=== PATIENT | female | born 1985 | race Caucasian/White ===

== ENCOUNTER 2017-06-12 07:47 | Day surgery (SDC) | payer BC ==
[~2017-06-12 07:47] MED LIST: Lidocaine 1%/Sod Bicarbonate in NS 8.4% 1 ML Syringe IV PRN; Sodium Chloride 0.9% 10 ML Syringe FLUSH PRN
[2017-06-12] MEDS ORDERED: Bupivacaine 0.5% 30 ML SDV ONE (07:49)
[2017-06-12] MEDS ORDERED: Methylene Blue 50 MG/10 ML Ampule ONE (07:49)
[2017-06-12] MEDS ORDERED: 5% Dextrose in Water 100 ML Bag ONE (07:49)
--- NOTE | 2017-06-12 08:13 | PCM.PREANE ---
Preanesthetic Assessment - Procedure Proposed Procedure: Laparoscopy with chromotubation - Anesthesia/Transfusion/Family Hx Anesthesia History: Prior Anesthesia Without Reaction Family History of Anesthesia Reaction: No Transfusion History: No Prior Transfusion(s) - Review of Systems General: No Symptoms Pulmonary: No Symptoms Cardiovascular: No Symptoms Gastrointestinal: No Symptoms Neurological: No Symptoms Other: Reports: Easy Bruising - Physical Assessment NPO Status Date: 06/11/17 NPO Status Time: 22:00 Pulse: 62 O2 Sat by Pulse Oximetry: 97 Respiratory Rate: 16 Blood Pressure: 118/65 Temperature: 36.8 C Height: 1.7 m Weight: 86.183 kg ASA Class: 2 Mental Status: Alert & Oriented x3 Airway Class: Mallampati = 2 Dentition: Reports: Normal Dentition Thyro-Mental Finger Breadths: 3 Mouth Opening Finger Breadths: 3 ROM/Head Extension: Full Lungs: Clear to Auscultation, Normal Respiratory Effort Cardiovascular: Regular Rate, Regular Rhythm - Lab Values: Laboratory Last Values WBC 7.94 K/mm3 (3.98-10.04) 06/02/17 13:51 RBC 4.69 M/mm3 (3.98-5.22) 06/02/17 13:51 Hgb 13.8 gm/L (11.2-15.7) 06/02/17 13:51 Hct 40.2 % (34.1-44.9) 06/02/17 13:51 MCV 85.7 fl (79.4-94.8) 06/02/17 13:51 MCH 29.4 pg (25.6-32.2) 06/02/17 13:51 MCHC 34.3 g/dl (32.2-35.5) 06/02/17 13:51 RDW Std Deviation 38.0 fL (36.4-46.3) 06/02/17 13:51 Plt Count 353 K/mm3 (182-369) 06/02/17 13:51 MPV 10.1 fl (9.4-12.3) 06/02/17 13:51 Neut % (Auto) 53.6 % (34.0-71.1) 06/02/17 13:51 Lymph % (Auto) 37.8 % (19.3-51.7) 06/02/17 13:51 [place] % (Auto) 6.9 % (4.7-12.5) 06/02/17 13:51 Eos % (Auto) 1.3 (0.7-5.8) 06/02/17 13:51 Baso % (Auto) 0.4 % (0.1-1.2) 06/02/17 13:51 Neut # (Auto) 4.26 K/mm3 (1.56-6.13) 06/02/17 13:51 Lymph # (Auto) 3.00 K/mm3 (1.18-3.74) 06/02/17 13:51 [place] # (Auto) 0.55 K/mm3 (0.24-0.36) H 06/02/17 13:51 Eos # (Auto) 0.10 K/mm3 (0.04-0.36) 06/02/17 13:51 Baso # (Auto) 0.03 K/mm3 (0.01-0.08) 06/02/17 13:51 Sodium 141 mEq/L (136-145) 06/02/17 13:51 Potassium 3.5 mEq/L (3.5-5.1) 06/02/17 13:51 Chloride 104 mEq/L (98-107) 06/02/17 13:51 Carbon Dioxide 31 mEq/L (21-32) 06/02/17 13:51 Anion Gap 9.5 (5-15) 06/02/17 13:51 BUN 10 mg/dL (7-18) 06/02/17 13:51 Creatinine 0.8 mg/dL (0.55-1.02) 06/02/17 13:51 Est Cr Clr Drug Dosing 99.99 mL/min 06/02/17 13:51 Estimated GFR (MDRD) > 60 mL/min (>60) 06/02/17 13:51 BUN/Creatinine Ratio 12.5 (14-18) L 06/02/17 13:51 Glucose 91 mg/dL (74-106) 06/02/17 13:51 Calcium 9.7 mg/dL (8.5-10.1) 06/02/17 13:51 Urine Color Yellow (Yellow) 06/02/17 13:51 Urine Appearance Slt cloudy (Clear) H 06/02/17 13:51 Urine pH 6.5 (5.0-8.0) 06/02/17 13:51 Ur Specific [place] 1.025 (1.005-1.030) 06/02/17 13:51 Urine Protein Negative (Negative) 06/02/17 13:51 Urine Glucose (UA) Negative (Negative) 06/02/17 13:51 Urine Ketones Trace (Negative) H 06/02/17 13:51 Urine Occult Blood Negative (Negative) 06/02/17 13:51 Urine Nitrite Negative (Negative) 06/02/17 13:51 Urine Bilirubin Negative (Negative) 06/02/17 13:51 Urine Urobilinogen 0.2 (0.2-1.0) 06/02/17 13:51 Ur Leukocyte Esterase Trace (Negative) H 06/02/17 13:51 Urine HCG, Qual Negative (NEGATIVE) 06/12/17 07:50 - Allergies Allergies/Adverse Reactions: Allergies Allergy/AdvReac Type Severity Reaction Status Date / Time No Known Allergies Allergy Verified 03/12/16 00:07 - Blood Blood Available: No Product(s) Available: None - Anesthesia Plan Pre-Op Medication Ordered: None - Acknowledgements Anesthesia Type Planned: General Anesthesia Pt an Appropriate Candidate for the Planned Anesthesia: Yes Alternatives and Risks of Anesthesia Discussed w Pt/Guardian: Yes Pt/Guardian Understands and Agrees with Anesthesia Plan: Yes PreAnesthesia Questionnaire Gastrointestinal History: Reports: Chronic Constipation, Other (See Below) Other Gastrointestinal History: gastic sleeve 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) Other OB/BYN History: infertility Psychiatric History: Reports: ADHD - Infectious Disease History Infectious Disease History: Reports: Chicken Pox - Past Surgical History GI Surgical History: Reports: Cholecystectomy, Other (See Below) Other GI Surgeries/Procedures: gastric sleeve surgery Musculoskeletal Surgical History: Reports: Arthroscopic Knee, Other (See Below) Other Musculoskeletal Surgeries/Procedures:: knee surgery x3 - SUBSTANCE USE Smoking Status *Q: Former Smoker Tobacco Use Within Last Twelve Months: No Recreational Drug Use History: No - HOME MEDS Home Medications: Home Meds Vitamin B12 1 tab PO DAILY 03/12/16 [History] Pnv No.122/Iron/Folic Acid [ Multi Tablet] 1 tab PO DAILY 06/11/17 [ History] - CURRENT (IN HOUSE) MEDS Current Meds: Current Medications Lactated Ringer's (Ringers, Lactated) 1,000 mls @ 125 mls/hr IV ASDIRECTED ABIGAIL Stop: 06/12/17 23:00 Lidocaine/Sodium Bicarbonate (Buffered Lidocaine 1% In Ns 8.4%) 0.25 ml IV ONETIME PRN PRN Reason: Prior to IV Start Stop: 06/12/17 18:00 Sodium Chloride (Saline Flush) 10 ml FLUSH ASDIRECTED PRN PRN Reason: Keep Vein Open Stop: 06/12/17 18:00 Discontinued Medications Bupivacaine HCl (Marcaine 0.5%) Confirm Administered Dose 30 ml .ROUTE .STK-MED ONE Stop: 06/12/17 07:50 Methylene Blue (Provayblue) Confirm Administered Dose 50 mg .ROUTE .STK-MED ONE Stop: 06/12/17 07:50
[2017-06-12] MEDS: Lactated Ringers 1,000 ML IV SCH ×2 (08:15→10:04)
[2017-06-12] MEDS ORDERED: fentaNYL 250 MCG/5 ML SDV ONE (08:31)
[2017-06-12] MEDS ORDERED: Midazolam 1 MG/ML 2 ML SDV ONE (08:31)
[2017-06-12] MEDS ORDERED: Propofol 200 MG/20 ML SDV ONE (08:31)
[2017-06-12] MEDS ORDERED: Lidocaine 1% 4 ML ONE (08:33)
[2017-06-12] MEDS ORDERED: Ondansetron 4 MG/2 ML SDV ONE (08:33)
[2017-06-12] MEDS ORDERED: Dexamethasone 4 MG/ML 5 ML MDV ONE (08:33)
[2017-06-12] MEDS ORDERED: Rocuronium 50 MG/5 ML Vial ONE (08:33)
[2017-06-12] MEDS ORDERED: ceFAZolin 1 GM Vial ONE (09:02)
[2017-06-12] MEDS ORDERED: Ondansetron 4 MG/2 ML SDV IVPUSH PRN ×2 (09:20→09:37)
[2017-06-12] MEDS ORDERED: Acetaminophen/oxyCODONE 325-5 MG Tab PO PRN (09:20)
--- NOTE | 2017-06-12 09:27 | PCM.OPNOTE ---
- General Post-Op/Procedure Note Date of Surgery/Procedure: 06/12/17 Operative Procedure(s): laparoscopy, chromotubation, lysis of pelvic adhesions Findings: patient noted have normal size uterus, there were adhesions from the left fallopian tube fimbria to the posterior broad ligament. There was normal fill and spill of TROV dye from the fallopian tubes with chromotubation indicating bilateral patency.ovaries appeared functional. Anterior and posterior cul-de- sac were unremarkable. The appendix appeared noninflamed. Gallbladder was surgically absent. The liver looked normal. Pre Op Diagnosis: 1. Secondary infertility. 2. Abnormal hysterosalpingogram with radiopaque dye loculations in the left adnexal area. Post-Op Diagnosis: Samewith pelvic adhesionsadherence of left fimbriated end of the fallopian tube to left posterior broad ligament. Anesthesia Technique: General ET Tube Other Anesthesia Type: Marcaine 0.5%3-5 mL at each incision site Primary Surgeon: Zhen Payne Secondary Surgeon: Haroldo Buenrostro Anesthesia Provider: Josiah Garcia Remote Sensing Program Manager: Robbie Espitia Remote Sensing Program Manager: Daniela James Fluid Replacement, Intraop: 900 Output, Urine Amount: 100 EBL in mLs: 5 Drain/Tube Comments:: indwelling bladder catheter during surgery only. Complications: None Condition: Good Free Text/Narrative:: surgery duration: 28 minutes Procedure: Patient is taken to the operating room and placed in supine position up in table. Should be noted consent has been signed. Sequential compression stockings are in place. Patient was given 2 g of Ancef IV for at about prophylaxis. Patient is in place under general endotracheal anesthesia. She was placed in dorsal lithotomy position and prepped and draped in usual fashion. A uterine manipulator and a Bowden catheter were placed. The patient was returned to a dorsal lithotomy position with legs in the lower position. Infraumbilical and suprapubic port sites were then developed using 3-5 mL of Marcaine 0.5%. Eventually a right lateral port site- 5 mm in size was also developed. Pneumoperitoneum was established. The scope was placed and a chromotubation was undertaken. The dye that was used was TROV. The patient was noted to have adhesion as described above. With the second manipulator port site the adhesion was disrupted bluntly. No significant bleeding was noted. The fallopian tube was completely freed up. posterior [id number] fluid in dye was removed. The sleeves were removed and the patient was returned to a flattened position. Pneumoperitoneum was reversed. The upper sleeve was removed area and all incision sites were closed with one interrupted subcuticular stitch of 3-0 Monocryl. There further approximated with Dermabond skin glue. Patient was awakened from general endotracheal anesthesia after the uterine manipulator and the Bowden catheter were removed. She left the operating room in good condition.
[2017-06-12] MEDS ORDERED: Ketorolac 30 MG/ML SDV ONE (09:31)
[2017-06-12] MEDS ORDERED: Meperidine PF 50 MG/ML Syringe IVPUSH PRN (09:37)
[2017-06-12] MEDS ORDERED: fentaNYL 100 MCG/2 ML SDV IVPUSH PRN (09:37)
[2017-06-12] MEDS ORDERED: diphenhydrAMINE 50 MG/ML SDV IVPUSH PRN (09:37)
--- NOTE | 2017-06-12 09:37 | PCM.POSTAN ---
POST ANESTHESIA ASSESSMENT - MENTAL STATUS Mental Status: Alert, Oriented - VITAL SIGNS Pulse Rate: 96 SaO2: 99 Resp Rate: 15 Blood Pressure: 123/78 Temperature: 37.2 C - RESPIRATORY Respiratory Status: Respiratory Rate WNL, Airway Patent, O2 Saturation Stable, Supplemental Oxygen - CARDIOVASCULAR CV Status: Pulse Rate WNL, Blood Pressure Stable - GASTROINTESTINAL GI Status: No Symptoms - PAIN Pain Score: 0 - POST OP HYDRATION Hydration Status: Adequate & Stable
[2017-06-12] MEDS: HYDROmorphone 0.5 MG/0.5 ML Syringe IVPUSH PRN ×2 (09:53→10:11)
[2017-06-12 11:47] VITALS: BP 105/69
--- NOTE | 2017-06-12 13:58 | PCM48HPAN ---
Post Anesthesia Note - EVALUATION WITHIN 48HRS OF ANESTHETIC Vital Signs in Normal Range: Yes Patient Participated in Evaluation: No (report from nurse was good upon discharge ) Respiratory Function Stable: Yes Airway Patent: Yes Cardiovascular Function Stable: Yes Hydration Status Stable: Yes Pain Control Satisfactory: Yes Nausea and Vomiting Control Satisfactory: Yes Mental Status Recovered: Yes
== END 2017-06-12 11:35 | disposition home or self-care (01) ==
LOC: JD.SDS 07:47
PROVIDERS: ATTEND Obstetrics & Gynecology
DX: N73.6 Female pelvic peritoneal adhesions (postinfective) (principal); Z79.899 Other long term (current) drug therapy; Z98.84 Bariatric surgery status; Z98.890 Other specified postprocedural states
CPT/HCPCS: 36415; 58350; 58660; 80048; 81003; 81025; 85025; A9270; J0690; J1100; J1170; J1885; J2250; J2405; J3010; J7060; J7120; 00840; J2704

== ENCOUNTER 2019-09-05 07:30 | Inpatient (IN) | payer BC, OTHER ==
[~2019-09-05 07:30] MED LIST changes: +Acetaminophen 325 MG Tab PO ONE; +Bisacodyl 5 MG Tab PO PRN; +Lactated Ringers 1,000 ML IV SCH; +Lidocaine 1%/Sod Bicarbonate in NS 8.4% 1 ML Syringe IDERM PRN; -Lidocaine 1%/Sod Bicarbonate in NS 8.4% 1 ML Syringe IV PRN; +Magnesium Hydroxide 400 MG/5 ML Susp 30 ML Cup PO PRN; +Morphine 2 MG/ML Syringe IVPUSH PRN; +Naloxone 0.4 MG/ML SDV IVPUSH PRN; +Ondansetron 4 MG/2 ML SDV IVPUSH PRN; +Pregabalin 25 MG Cap PO ONE; +Sennosides 8.6 MG Tab PO PRN; +oxyCODONE ER 10 MG TAB.ER PO ONE
[2019-09-05] MEDS ORDERED: Morphine 8 MG, EPINEPHrine 0.3 MG, Cefuroxime 750 MG, Ketorolac 30 MG, Sodium Chloride ... ONE ×5 (10:00)
[2019-09-05] MEDS ORDERED: fentaNYL 100 MCG/2 ML SDV ONE (10:13)
[2019-09-05] MEDS ORDERED: Midazolam 1 MG/ML 2 ML SDV ONE ×2 (10:13→13:12)
[2019-09-05] MEDS ORDERED: Propofol 200 MG/20 ML SDV ONE ×2 (10:13→14:11)
[2019-09-05] MEDS ORDERED: ceFAZolin 1 GM Vial ONE ×2 (10:14→11:45)
[2019-09-05] MEDS ORDERED: oxyCODONE ER 10 MG TAB.ER PO ONE (11:00)
[2019-09-05] MEDS ORDERED: Pregabalin 25 MG Cap PO ONE (11:00)
[2019-09-05] MEDS ORDERED: Acetaminophen 325 MG Tab PO ONE (11:00)
[2019-09-05] MEDS ORDERED: Ropivacaine 0.5% 5 MG/ML 30 ML SDV ONE (11:24)
[2019-09-05] MEDS ORDERED: Vancomycin 1 GM SDV ONE (11:44)
[2019-09-05] MEDS ORDERED: Iodine/Sodium Iodide 2% Tincture 30 ML Bottle ONE (11:44)
[2019-09-05] MEDS ORDERED: Bupivacaine 0.25% 10 ML SDV ONE (11:44)
--- NOTE | 2019-09-05 11:45 | PCM.PREANE ---
Preanesthetic Assessment - Procedure Proposed Procedure: Left TKA - Anesthesia/Transfusion/Family Hx Anesthesia History: Prior Anesthesia Without Reaction Family History of Anesthesia Reaction: No Transfusion History: No Prior Transfusion(s) - Review of Systems General: No Symptoms Pulmonary: No Symptoms Cardiovascular: No Symptoms Gastrointestinal: No Symptoms Neurological: No Symptoms Other: Reports: Easy Bruising - Physical Assessment NPO Status Date: 09/04/19 NPO Status Time: 22:30 Vital Signs: Last Vital Signs Temp 36.7 C 09/05/19 10:40 Pulse 81 09/05/19 10:40 Resp 16 09/05/19 10:40 BP 108/78 09/05/19 10:40 Pulse Ox 97 09/05/19 10:40 Height: 1.7 m Weight: 83.915 kg ASA Class: 2 Mental Status: Alert & Oriented x3 Airway Class: Mallampati = 1 Dentition: Reports: Normal Dentition Thyro-Mental Finger Breadths: 3 Mouth Opening Finger Breadths: 3 ROM/Head Extension: Full Lungs: Clear to Auscultation, Normal Respiratory Effort Cardiovascular: Regular Rate, Regular Rhythm - Lab Values: Laboratory Last Values Urine HCG, Qual Negative (NEGATIVE) 09/05/19 10:38 MRSA (PCR) Negative 08/24/19 12:47 - Imaging/EKG Impressions: EKG sr rate 61 - Allergies Allergies/Adverse Reactions: Allergies Allergy/AdvReac Type Severity Reaction Status Date / Time No Known Allergies Allergy Verified 09/05/19 06:26 - Anesthesia Plan Pre-Op Medication Ordered: None - Acknowledgements Anesthesia Type Planned: Spinal Pt an Appropriate Candidate for the Planned Anesthesia: Yes Alternatives and Risks of Anesthesia Discussed w Pt/Guardian: Yes Pt/Guardian Understands and Agrees with Anesthesia Plan: Yes PreAnesthesia Questionnaire HEENT History: Reports: None Cardiovascular History: Reports: None Respiratory History: Reports: None Gastrointestinal History: Reports: Chronic Constipation, GERD, Other (See Below) Other Gastrointestinal History: gastic sleeve Genitourinary History: Reports: None 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) Other OB/BYN History: infertility, abnormal uterine bleeding, anovulation, bacterial vaginosis, laparoscopy, menorrhagia Musculoskeletal History: Reports: Arthritis, Other (See Below) Other Musculoskeletal History: hand pain, wrist pain Neurological History: Reports: None Psychiatric History: Reports: ADHD Endocrine/Metabolic History: Reports: None Hematologic History: Reports: None Immunologic History: Reports: None Oncologic (Cancer) History: Reports: None Dermatologic History: Reports: None - Infectious Disease History Infectious Disease History: Reports: Chicken Pox - Past Surgical History Head Surgeries/Procedures: Reports: None HEENT Surgical History: Reports: None Cardiovascular Surgical History: Reports: None Respiratory Surgical History: Reports: None GI Surgical History: Reports: Bariatric Procedure, Cholecystectomy, Other (See Below) Other GI Surgeries/Procedures: gastric sleeve surgery Female Surgical History: Reports: None Male Surgical History: Reports: None Endocrine Surgical History: Reports: None Neurological Surgical History: Reports: None Musculoskeletal Surgical History: Reports: Arthroscopic Knee, Other (See Below) Other Musculoskeletal Surgeries/Procedures:: knee surgery x3 Oncologic Surgical History: Reports: None Dermatological Surgical History: Reports: None - SUBSTANCE USE Smoking Status *Q: Former Smoker Tobacco Use Within Last Twelve Months: No Second Hand Smoke Exposure: No Days Per Week of Alcohol Use: 0 Number of Drinks Per Day: 0 Total Drinks Per Week: 0 Recreational Drug Use History: No - HOME MEDS Home Medications: Home Meds Cholecalciferol (Vitamin D3) [Vitamin D3] 5,000 unit PO DAILY 09/05/19 [History] Cyanocobalamin (Vitamin B-12) [Vitamin B-12] 1,000 mcg PO DAILY 09/05/19 [ History] Magnesium Oxide [Magnesium] 500 mg PO DAILY 09/05/19 [History] Vits #93/Iron Fum/FA [ Formula Tablet] 1 tab PO DAILY 09/05/19 [History] - CURRENT (IN HOUSE) MEDS Current Meds: Current Medications Bisacodyl (Dulcolax) 5 mg PO DAILY PRN PRN Reason: Constipation Cyclobenzaprine HCl (Flexeril) 10 mg PO TID PRN PRN Reason: Spasms Docusate Sodium (Colace) 100 mg PO BID ABIGAIL Famotidine (Pepcid) 20 mg PO Q12H ABIGAIL Lactated Ringer's (Ringers, Lactated) 1,000 mls @ 125 mls/hr IV ASDIRECTED ABIGAIL Stop: 09/05/19 23:00 Last Admin: 09/05/19 11:00 Dose: 125 mls/hr Cefazolin Sodium/Dextrose 2 gm (/ Premix) 50 mls @ 100 mls/hr IV Q8H ABIGAIL Stop: 09/06/19 10:29 Ketorolac Tromethamine (Toradol) 15 mg IVPUSH Q6H PRN PRN Reason: Pain Lidocaine/Sodium Bicarbonate (Buffered Lidocaine 1% In Ns 8.4%) 0.25 ml IDERM ONETIME PRN PRN Reason: Prior to IV Start Stop: 09/05/19 18:00 Last Admin: 09/05/19 11:00 Dose: 0.25 ml Magnesium Hydroxide (Milk Of Magnesia) 30 ml PO BID PRN PRN Reason: Constipation Morphine Sulfate (Morphine) 2 mg IVPUSH Q2H PRN PRN Reason: Breakthrough Pain Naloxone HCl (Narcan) 0.1 mg IVPUSH Q5M PRN PRN Reason: Oversedation Ondansetron HCl (Zofran) 4 mg IVPUSH Q6H PRN PRN Reason: Nausea/Vomiting Oxycodone/Acetaminophen (Percocet 325-5 Mg) 1 - 2 tab PO Q4H PRN PRN Reason: Pain Rivaroxaban (Xarelto) 10 mg PO DAILY ABIGAIL Senna (Senna) 8.6 mg PO BID PRN PRN Reason: Constipation Sodium Chloride (Saline Flush) 10 ml FLUSH ASDIRECTED PRN PRN Reason: Keep Vein Open Stop: 09/05/19 18:00 Discontinued Medications Acetaminophen (Tylenol) 975 mg PO ONETIME ONE Stop: 09/05/19 07:01 Last Admin: 09/05/19 11:00 Dose: 975 mg Acetaminophen (Tylenol) 975 mg PO ONETIME ONE Stop: 09/05/19 11:01 Cefazolin Sodium (Ancef) Confirm Administered Dose 2 gm .ROUTE .STK-MED ONE Stop: 09/05/19 10:15 Morphine Sulfate 8 mg/Epinephrine HCl 0.3 mg/Cefuroxime Sodium 750 mg/Ketorolac Tromethamine 30 mg/Sodium Chloride 27.9 ml 0 mg .XX ONETIME ONE Stop: 09/05/19 10:01 Fentanyl (Sublimaze) Confirm Administered Dose 100 mcg .ROUTE .STK-MED ONE Stop: 09/05/19 10:14 Midazolam HCl (Versed 1 Mg/Ml) Confirm Administered Dose 2 mg .ROUTE .STK-MED ONE Stop: 09/05/19 10:14 Oxycodone HCl (Oxycontin) 10 mg PO ONETIME ONE Stop: 09/05/19 07:01 Last Admin: 09/05/19 11:00 Dose: 10 mg Oxycodone HCl (Oxycontin) 10 mg PO ONETIME ONE Stop: 09/05/19 11:01 Pregabalin (Lyrica) 50 mg PO ONETIME ONE Stop: 09/05/19 07:01 Last Admin: 09/05/19 10:59 Dose: 50 mg Pregabalin (Lyrica) 50 mg PO ONETIME ONE Stop: 09/05/19 11:01 Propofol (Diprivan 20 Ml) Confirm Administered Dose 600 mg .ROUTE .STK-MED ONE Stop: 09/05/19 10:14 Ropivacaine (Naropin 0.5%) Confirm Administered Dose 30 ml .ROUTE .STK-MED ONE Stop: 09/05/19 11:25
[2019-09-05] MEDS ORDERED: Ketorolac 15 MG/ML SDV IVPUSH PRN (12:00)
[2019-09-05] MEDS ORDERED: Lidocaine 1% 4 ML ONE (13:12)
[2019-09-05] MEDS ORDERED: HYDROmorphone 0.5 MG/0.5 ML Syringe IVPUSH PRN (13:20)
[2019-09-05] MEDS ORDERED: Ondansetron 4 MG/2 ML SDV IVPUSH PRN (13:20)
[2019-09-05] MEDS ORDERED: fentaNYL 100 MCG/2 ML SDV IVPUSH PRN (13:20)
[2019-09-05] MEDS ORDERED: Lactated Ringers 1,000 ML ONE ×2 (13:22→13:41)
[2019-09-05] MEDS ORDERED: ePHEDrine/Normal Saline 25 MG/5 ML Syringe ONE (13:22)
[2019-09-05] MEDS ORDERED: Ketorolac 30 MG/ML SDV ONE (14:27)
[2019-09-05] MEDS ORDERED: Ondansetron 4 MG/2 ML SDV ONE (14:27)
--- NOTE | 2019-09-05 14:55 | PCM.POSTAN ---
POST ANESTHESIA ASSESSMENT - MENTAL STATUS Mental Status: Alert, Oriented - VITAL SIGNS Vital Signs: Last Vital Signs Temp 97.9 F 09/05/19 14:50 Pulse 81 09/05/19 10:40 Resp 12 09/05/19 14:50 BP 114/52 L 09/05/19 14:50 Pulse Ox 100 09/05/19 14:50 100 12 97.8 100% 114/52 - RESPIRATORY Respiratory Status: Respiratory Rate WNL, Airway Patent, O2 Saturation Stable, Supplemental Oxygen - CARDIOVASCULAR CV Status: Pulse Rate WNL, Blood Pressure Stable - GASTROINTESTINAL GI Status: No Symptoms - PAIN Pain Score: 0 - POST OP HYDRATION Hydration Status: Adequate & Stable - OBSERVATIONS Free Text/Narrative:: chilly
--- NOTE | 2019-09-05 15:11 | PCM.SN ---
- Free Text/Narrative Note: Left selective femoral nerve block at the adductor canal for post-procedure pain control under US guidance requested by Dr. Jiménez. Date:09/05/19 Time Out: 1500 Start: 1503 End: 1505 Chart reviewed. Consent signed. Questions answered. Appropriate monitors applied. Time out performed. Left mid-shaft femur identified with ultrasound, scanning medially of femur, the femoral artery in the adductor canal visualized , and the femoral nerve located laterally to the artery. The skin was prepped lateral to the ultrasound probe with chlorahexadine times two. The 21ga 4 insulated block needle was inserted under direct ultrasound guidance into the adductor canal. 25mL of 0.5% ropivacaine with 1:200,000 epinephrine was injected circumferentially around the nerve with intermittent negative aspiration noted. Patient tolerated the procedure well. Sterile technique noted along with sterile gloves, mask, and sterile probe cover. See picture on progress note and vital signs on nurses notes. Block completed in PACU. Leti Hollingsworth CRNA
[2019-09-05] MEDS: Acetaminophen/oxyCODONE 325-5 MG Tab PO PRN ×2 (15:34→20:47)
--- NOTE | 2019-09-05 16:01 | CR ---
Left knee: AP and lateral views left knee were obtained. Comparison: No prior left knee exam. Knee prosthesis is seen. Components are aligned. Two surgical screws are seen within the proximal tibia inferior to the knee prosthesis. No fracture or other bony abnormality is seen. Surgical anchor is noted within the patella. Soft tissue air is noted from the surgical procedure. Impression: 1. Knee prosthesis. Other findings as noted above. 2. Nothing acute is seen. Diagnostic code #2 This report was dictated in [place] Standard Time
[2019-09-05] MEDS: ceFAZolin 2 GM in Premix Bag 1 BAG IV SCH (17:34)
[2019-09-05] MEDS: Cyclobenzaprine 10 MG Tab PO PRN (17:34)
[2019-09-05] MEDS: Famotidine 20 MG Tab PO SCH ×2 (19:20→23:24)
[2019-09-05] MEDS: Docusate Sodium 100 MG Cap PO SCH (20:48)
[2019-09-05] MEDS ORDERED: Cyanocobalamin (Vitamin B12) 1,000 MCG Tab PO SCH (21:00)
[2019-09-05] MEDS ORDERED: Prenatal Multivitamin with Calcium/Folic Acid/Iron Tab PO SCH (21:00)
[2019-09-05] MEDS ORDERED: Cholecalciferol (Vitamin D3) 5,000 UNIT Tab PO SCH (21:00)
[2019-09-05] MEDS ORDERED: Magnesium Oxide 400 MG Tab PO SCH (21:00)
[2019-09-06] MEDS: Acetaminophen/oxyCODONE 325-5 MG Tab PO PRN ×2 (00:49→05:45)
[2019-09-06] MEDS: ceFAZolin 2 GM in Premix Bag 1 BAG IV SCH ×2 (02:14→09:44)
[2019-09-06] MEDS: Cyclobenzaprine 10 MG Tab PO PRN (07:40)
[2019-09-06 07:52] VITALS: BP 120/77; PULSE 72
--- NOTE | 2019-09-06 07:53 | PCM48HPAN ---
Post Anesthesia Note - EVALUATION WITHIN 48HRS OF ANESTHETIC Vital Signs in Normal Range: Yes Patient Participated in Evaluation: Yes Respiratory Function Stable: Yes Airway Patent: Yes Cardiovascular Function Stable: Yes Hydration Status Stable: Yes Pain Control Satisfactory: Yes Nausea and Vomiting Control Satisfactory: Yes Mental Status Recovered: Yes Vital Signs: Last Vital Signs Temp 98.8 F 09/06/19 07:43 Pulse 72 09/06/19 07:43 Resp 14 09/06/19 07:43 BP 120/77 09/06/19 07:43 Pulse Ox 99 09/06/19 07:43 - COMMENTS/OBSERVATIONS Free Text/Narrative:: minimal pain. Some indigestion and nausea at times.
[2019-09-06] MEDS ORDERED: oxyCODONE 5 MG Tab PO PRN (08:32)
[2019-09-06] MEDS ORDERED: Rivaroxaban 10 MG Tab PO SCH (09:00)
[2019-09-06] MEDS: Docusate Sodium 100 MG Cap PO SCH (09:06)
[2019-09-06] MEDS: Famotidine 20 MG Tab PO SCH (09:06)
--- NOTE | 2019-09-08 13:28 | PCM.SURGPN ---
- General Info Date of Service: 09/06/19 POD#: 1 Functional Status: Reports: Pain Controlled, Tolerating Diet, Ambulating, Urinating, Incentive Spirometry, Other (The pt has been independent in her room. ) - Patient Data Vitals - Most Recent: Last Vital Signs Temp 98.8 F 09/06/19 07:43 Pulse 72 09/06/19 07:43 Resp 14 09/06/19 07:43 BP 120/77 09/06/19 07:43 Pulse Ox 99 09/06/19 07:43 Weight - Most Recent: 185 lb Med Orders - Current: Current Medications Discontinued Medications Acetaminophen (Tylenol) 975 mg PO ONETIME ONE Stop: 09/05/19 07:01 Last Admin: 09/05/19 11:00 Dose: 975 mg Acetaminophen (Tylenol) 975 mg PO ONETIME ONE Stop: 09/05/19 11:01 Bisacodyl (Dulcolax) 5 mg PO DAILY PRN PRN Reason: Constipation Bupivacaine HCl (Sensorcaine-Mpf 0.25%) Confirm Administered Dose 30 ml .ROUTE .STK-MED ONE Stop: 09/05/19 11:45 Last Admin: 09/05/19 14:13 Dose: 30 ml Cefazolin Sodium (Ancef) Confirm Administered Dose 2 gm .ROUTE .STK-MED ONE Stop: 09/05/19 10:15 Last Admin: 09/05/19 14:10 Dose: 2 gm Cefazolin Sodium (Ancef) Confirm Administered Dose 2 gm .ROUTE .STK-MED ONE Stop: 09/05/19 11:46 Cholecalciferol (Vitamin D3) 5,000 unit PO BEDTIME [facility] Last Admin: 09/05/19 20:48 Dose: 5,000 unit Morphine Sulfate 8 mg/Epinephrine HCl 0.3 mg/Cefuroxime Sodium 750 mg/Ketorolac Tromethamine 30 mg/Sodium Chloride 27.9 ml 0 mg .XX ONETIME ONE Stop: 09/05/19 10:01 Last Admin: 09/05/19 14:13 Dose: 788.3 mg Cyanocobalamin (Vitamin B12) 1,000 mcg PO BEDTIME [facility] Last Admin: 09/05/19 20:48 Dose: 1,000 mcg Cyclobenzaprine HCl (Flexeril) 10 mg PO TID PRN PRN Reason: Spasms Last Admin: 09/06/19 07:40 Dose: 10 mg Docusate Sodium (Colace) 100 mg PO BID [facility] Last Admin: 09/06/19 09:06 Dose: 100 mg Ephedrine Sulfate (Ephedrine In Ns) Confirm Administered Dose 25 mg .ROUTE .STK- MED ONE Stop: 09/05/19 13:23 Famotidine (Pepcid) 20 mg PO Q12H [facility] Last Admin: 09/06/19 09:06 Dose: 20 mg Fentanyl (Sublimaze) Confirm Administered Dose 100 mcg .ROUTE .STK-MED ONE Stop: 09/05/19 10:14 Fentanyl (Sublimaze) 50 mcg IVPUSH Q5M PRN PRN Reason: Pain Stop: 09/05/19 15:00 Hydromorphone HCl (Dilaudid) 0.5 mg IVPUSH Q10M PRN PRN Reason: Pain (severe 7-10) Stop: 09/05/19 15:00 Lactated Ringer's (Ringers, Lactated) 1,000 mls @ 125 mls/hr IV ASDIRECTED [facility] Stop: 09/05/19 23:00 Last Admin: 09/05/19 11:00 Dose: 125 mls/hr Cefazolin Sodium/Dextrose 2 gm (/ Premix) 50 mls @ 100 mls/hr IV Q8H [facility] Stop: 09/06/19 10:29 Last Admin: 09/06/19 09:44 Dose: 100 mls/hr Lidocaine HCl (Xylocaine-Mpf 1%) Confirm Administered Dose 4 mls @ as directed .ROUTE .STK-MED ONE Stop: 09/05/19 13:13 Lactated Ringer's (Ringers, Lactated) Confirm Administered Dose 1,000 mls @ as directed .ROUTE .STK-MED ONE Stop: 09/05/19 13:23 Lactated Ringer's (Ringers, Lactated) Confirm Administered Dose 1,000 mls @ as directed .ROUTE .STK-MED ONE Stop: 09/05/19 13:42 Iodine (Iodine 2% Mild Tincture) Confirm Administered Dose 30 ml .ROUTE .STK- MED ONE Stop: 09/05/19 11:45 Last Admin: 09/05/19 14:06 Dose: 18 ml Ketorolac Tromethamine (Toradol) 15 mg IVPUSH Q6H PRN PRN Reason: Pain Ketorolac Tromethamine (Toradol) Confirm Administered Dose 30 mg .ROUTE .STK- MED ONE Stop: 09/05/19 14:28 Lidocaine/Sodium Bicarbonate (Buffered Lidocaine 1% In Ns 8.4%) 0.25 ml IDERM ONETIME PRN PRN Reason: Prior to IV Start Stop: 09/05/19 18:00 Last Admin: 09/05/19 11:00 Dose: 0.25 ml Magnesium Hydroxide (Milk Of Magnesia) 30 ml PO BID PRN PRN Reason: Constipation Magnesium Oxide (Magnesium Oxide) 400 mg PO BEDTIME [facility] Last Admin: 09/05/19 20:48 Dose: 400 mg Midazolam HCl (Versed 1 Mg/Ml) Confirm Administered Dose 2 mg .ROUTE .STK-MED ONE Stop: 09/05/19 10:14 Midazolam HCl (Versed 1 Mg/Ml) Confirm Administered Dose 2 mg .ROUTE .STK-MED ONE Stop: 09/05/19 13:13 Morphine Sulfate (Morphine) 2 mg IVPUSH Q2H PRN PRN Reason: Breakthrough Pain Last Admin: 09/05/19 17:57 Dose: 2 mg Naloxone HCl (Narcan) 0.1 mg IVPUSH Q5M PRN PRN Reason: Oversedation Ondansetron HCl (Zofran) 4 mg IVPUSH Q6H PRN PRN Reason: Nausea/Vomiting Ondansetron HCl (Zofran) 4 mg IVPUSH ONETIME PRN PRN Reason: Nausea/Vomiting Stop: 09/05/19 15:00 Ondansetron HCl (Zofran) Confirm Administered Dose 4 mg .ROUTE .STK-MED ONE Stop: 09/05/19 14:28 Oxycodone HCl (Oxycontin) 10 mg PO ONETIME ONE Stop: 09/05/19 07:01 Last Admin: 09/05/19 11:00 Dose: 10 mg Oxycodone HCl (Oxycontin) 10 mg PO ONETIME ONE Stop: 09/05/19 11:01 Oxycodone HCl (Oxycodone) 5 - 10 mg PO Q4H PRN PRN Reason: Pain Last Admin: 09/06/19 11:01 Dose: 10 mg Oxycodone/Acetaminophen (Percocet 325-5 Mg) 1 - 2 tab PO Q4H PRN PRN Reason: Pain Last Admin: 09/06/19 05:45 Dose: 2 tab Pregabalin (Lyrica) 50 mg PO ONETIME ONE Stop: 09/05/19 07:01 Last Admin: 09/05/19 10:59 Dose: 50 mg Pregabalin (Lyrica) 50 mg PO ONETIME ONE Stop: 09/05/19 11:01 Prenat Multivit/Telluride/Iron/Folic Ac ( Plus Iron) 1 each PO BEDTIME [facility] Last Admin: 09/05/19 20:48 Dose: 1 each Propofol (Diprivan 20 Ml) Confirm Administered Dose 600 mg .ROUTE .STK-MED ONE Stop: 09/05/19 10:14 Propofol (Diprivan 20 Ml) Confirm Administered Dose 200 mg .ROUTE .STK-MED ONE Stop: 09/05/19 14:12 Rivaroxaban (Xarelto) 10 mg PO DAILY [facility] Last Admin: 09/06/19 09:06 Dose: 10 mg Ropivacaine (Naropin 0.5%) Confirm Administered Dose 30 ml .ROUTE .STK-MED ONE Stop: 09/05/19 11:25 Senna (Senna) 8.6 mg PO BID PRN PRN Reason: Constipation Sodium Chloride (Saline Flush) 10 ml FLUSH ASDIRECTED PRN PRN Reason: Keep Vein Open Stop: 09/05/19 18:00 Tranexamic Acid (Cyklokapron) Confirm Administered Dose 1,000 mg .ROUTE .STK- MED ONE Stop: 09/05/19 11:45 Last Admin: 09/05/19 14:20 Dose: 1,000 mg Vancomycin HCl (Vancomycin) Confirm Administered Dose 1 gm .ROUTE .STK-MED ONE Stop: 09/05/19 11:45 Last Admin: 09/05/19 14:16 Dose: 1 gm - Exam Wound/Incisions: Dressing Dry and Intact General: Alert, Cooperative, No Acute Distress Lungs: Normal Respiratory Effort Extremities: Other (NVS intact for LLE. Arvin's negative for BLE.) Sepsis Event Note - Evaluation Sepsis Screening Result: No Definite Risk - Problem List Review Problem List Initiated/Reviewed/Updated: Yes - Assessment Assessment (Free Text/Narrative):: POD#1 - left TKA - Plan Plan (Free Text/Narrative):: 1. Hgb 11.3. 2. Xarelto 10mg PO daily x 30 days. The pt is unable to use ASA due to hx weight loss surgery. 3. Outpatient therapy. 4. Discharge to home today. The pt's case was discussed with Dr. Jiménez today.
--- NOTE | 2019-09-08 16:16 | PCM.OPNOTE ---
- General Post-Op/Procedure Note Date of Surgery/Procedure: 09/05/19 Operative Procedure(s): left total knee arthroplasty Pre Op Diagnosis: left knee osteoarthrosis Post-Op Diagnosis: Same Anesthesia Technique: Local, MAC, Spinal Primary Surgeon: Sebastian Jiménez Anesthesia Provider: Leti Hollingsworth Framing Manager: Nilsa Carrasquillo Framing Manager: Kati Reinoso in mLs: 5 Complications: None Condition: Good Free Text/Narrative:: 12/23 32x10 9mm
--- NOTE | 2019-09-08 16:41 | OR ---
DATE OF OPERATION: 09/05/2019 SURGEON: Sebastian Jiménez MD OPERATION PERFORMED: Left total knee arthroplasty. PREOPERATIVE DIAGNOSIS: Left knee osteoarthrosis. POSTOPERATIVE DIAGNOSIS: Left knee osteoarthrosis. ANESTHESIA: Local MAC with spinal. ANESTHESIA PROVIDER: Leti Hollingsworth CRNA. ASSISTANTS: Nilsa Carrasquillo PA-C , and Kati Reinoso LPN. ESTIMATED BLOOD LOSS: 5 mL. COMPLICATIONS: None. CONDITION: Stable. IMPLANTS: 1. [place] size 4 press-fit CR femur. 2. Joe size 4 cemented universal tibial base plate. 3. Joe size 4, 9 mm CS polyethylene insert. 4. Joe size 32 x 10 mm cemented asymmetric patella. DESCRIPTION OF PROCEDURE: The patient was identified in the preop holding area. Proper site was marked and identified by the surgeon. The patient was taken back to the operating theater. After adequate anesthesia, the patient's left lower extremity had a nonsterile tourniquet applied and it was sterilely prepped and draped in the usual sterile fashion. OR time-out was performed. The patient received 2 g IV Ancef. At this time, the left lower extremity was exsanguinated. Tourniquet was insufflated to 300 mmHg. Standard medial parapatellar incision was made. Medial parapatellar arthrotomy was created. Deep fibers of the MCL were raised and anterior fat pad was resected. At this time, attention was turned to the patella. Patella measured 21, it was resected to a 13 for 32 x 10 mm patella. Drill holes were then drilled and found to be in adequate position. The drill was then drilled in the distal femur and the intramedullary distal femoral cutting guide was then placed. 10 mm was resected off the distal femur and was found to be an adequate resection. Patient had a very hypoplastic lateral femoral condyle. Sizing guide was placed. It was found to be a size 4 press-fit CR femur that was shown on the implant record at the beginning of this dictation. The drill holes were drilled for the epicondylar axis using [place] line and epicondyles as reference. At this time, the 4-in - 1 cutting block was placed. An anterior posterior and anterior and posterior chamfer cuts were then completed. I decided to press-fit the femur secondary to the patients age. Attention was turned to the tibia. The posterior medial lateral retractors were placed. The extramedullary tibial guide was placed. It was placed in the old footprint of the ACL. It was aligned with the center of the ankle and 0 degrees of slope, 9 mm was then resected off the unaffected side. There was found to be an acceptable reduction. At this time, posterior osteophytes were removed along with medial and lateral meniscus. A trial implant was placed with a correct sized tibia that was mentioned at the beginning of the dictation. A Joe size 4, 9 mm CS polyethylene insert was then placed. The patient's knee was brought through range of motion. The patella was tracking centrally and was stable to varus and valgus stress. Alignment was found to be roughly at 0 degrees. The tibia was stamped and drilled in proper rotation. The universal tibial base plate was impacted in place. Next, the Joe size 4 press-fit CR femur impacted into place and the Joe size 4, 9 mm CS polyethylene insert was placed. The patient's knee was brought into full extension. The patella was then cemented in place at this time. Tourniquet was deflated. One liter dilute Betadine solution was irrigated through the knee along with 3 L of pulse lavage irrigation with Ancef. Periarticular injection was then completed. The patient's knee was brought through a range of motion. Once the cement had time to set up and it was found to be stable to varus valgus stress, the patella was tracking centrally with full range of motion. At this time, a #2 barbed suture was used for closure of the medial parapatellar arthrotomy. Topical tranexamic acid was placed. 2-0 Vicryl was used subcutaneously, Prineo was used for the skin. The patient tolerated the procedure well and was sent to the PACU in stable condition. MMODAL /[id number]
== END 2019-09-06 11:10 | disposition home or self-care (01) | DRG 302 ==
LOC: EDSTATUS 07:30 → JD.MS 10:31 → JD.OB 14:22
PROVIDERS: ADMIT Orthopaedic Surgery; ATTEND Orthopaedic Surgery
PROC: 0SRD0J9 Replacement of Left Knee Joint with Synthetic Substitute, Cemented, Open Approach (ICD-10-PCS; principal; 2019-09-05)
DX: M17.12 Unilateral primary osteoarthritis, left knee (principal)
CPT/HCPCS: 01402; 36415; 64450; 73560-26-LT; 73560-LT; 80053; 81025; 85027; 87641; 97110-GP; 97116-GP; 97161-GP; 97165-GO; 97535-GO; A9270-GY; C1713; C1776; J0171; J0690; J0697; J1885; J2001; J2250; J2270; J2405; J2704; J2795; J3010; J3370; J3490; J7050; J7120

== ENCOUNTER 2019-10-10 06:18 | Day surgery (SDC) | payer BC ==
[~2019-10-10 06:18] MED LIST changes: -Acetaminophen 325 MG Tab PO ONE; -Bisacodyl 5 MG Tab PO PRN; -Magnesium Hydroxide 400 MG/5 ML Susp 30 ML Cup PO PRN; -Morphine 2 MG/ML Syringe IVPUSH PRN; -Naloxone 0.4 MG/ML SDV IVPUSH PRN; -Ondansetron 4 MG/2 ML SDV IVPUSH PRN; -Pregabalin 25 MG Cap PO ONE; -Sennosides 8.6 MG Tab PO PRN; -oxyCODONE ER 10 MG TAB.ER PO ONE
--- NOTE | 2019-10-10 06:46 | PCM.PREANE ---
Preanesthetic Assessment - Anesthesia/Transfusion/Family Hx Anesthesia History: Prior Anesthesia Without Reaction Family History of Anesthesia Reaction: No Transfusion History: No Prior Transfusion(s) - Review of Systems General: No Symptoms Pulmonary: No Symptoms Cardiovascular: No Symptoms Gastrointestinal: No Symptoms Neurological: No Symptoms Other: Reports: None - Physical Assessment NPO Status Date: 10/09/19 NPO Status Time: 00:00 Height: 1.7 m Weight: 81.465 kg ASA Class: 2 Mental Status: Alert & Oriented x3 Airway Class: Mallampati = 1 Dentition: Reports: Normal Dentition Thyro-Mental Finger Breadths: 3 Mouth Opening Finger Breadths: 3 ROM/Head Extension: Full Lungs: Clear to Auscultation, Normal Respiratory Effort Cardiovascular: Regular Rate, Regular Rhythm - Allergies Allergies/Adverse Reactions: Allergies Allergy/AdvReac Type Severity Reaction Status Date / Time No Known Allergies Allergy Verified 10/07/19 11:04 - Blood Blood Available: No Product(s) Available: None - Anesthesia Plan Pre-Op Medication Ordered: None - Acknowledgements Anesthesia Type Planned: MAC Pt an Appropriate Candidate for the Planned Anesthesia: Yes Alternatives and Risks of Anesthesia Discussed w Pt/Guardian: Yes Pt/Guardian Understands and Agrees with Anesthesia Plan: Yes PreAnesthesia Questionnaire HEENT History: Reports: None Cardiovascular History: Reports: None Respiratory History: Reports: None Gastrointestinal History: Reports: Chronic Constipation, GERD, Other (See Below) Other Gastrointestinal History: gastic sleeve Genitourinary History: Reports: None 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) Other OB/BYN History: infertility Musculoskeletal History: Reports: Arthritis, Other (See Below) Other Musculoskeletal History: hand pain, wrist pain Neurological History: Reports: None Psychiatric History: Reports: ADHD Endocrine/Metabolic History: Reports: None Hematologic History: Reports: None Immunologic History: Reports: None Oncologic (Cancer) History: Reports: None Dermatologic History: Reports: None - Infectious Disease History Infectious Disease History: Reports: Chicken Pox - Past Surgical History Head Surgeries/Procedures: Reports: None HEENT Surgical History: Reports: None Cardiovascular Surgical History: Reports: None Respiratory Surgical History: Reports: None GI Surgical History: Reports: Cholecystectomy, Other (See Below) Other GI Surgeries/Procedures: gastric sleeve surgery Female Surgical History: Reports: None Male Surgical History: Reports: None Endocrine Surgical History: Reports: None Neurological Surgical History: Reports: None Musculoskeletal Surgical History: Reports: Arthroscopic Knee, Other (See Below) Other Musculoskeletal Surgeries/Procedures:: knee surgery x3 Oncologic Surgical History: Reports: None Dermatological Surgical History: Reports: None - SUBSTANCE USE Smoking Status *Q: Never Smoker Second Hand Smoke Exposure: No Days Per Week of Alcohol Use: 0 Number of Drinks Per Day: 0 Total Drinks Per Week: 0 Recreational Drug Use History: No - HOME MEDS Home Medications: Home Meds Cholecalciferol (Vitamin D3) [Vitamin D3] 5,000 unit PO DAILY 09/05/19 [History] Cyanocobalamin (Vitamin B-12) [Vitamin B-12] 1,000 mcg PO DAILY 09/05/19 [ History] Magnesium Oxide [Magnesium] 500 mg PO DAILY 09/05/19 [History] Vits #93/Iron Fum/FA [ Formula Tablet] 3 tab PO DAILY 09/05/19 [History] Cyclobenzaprine [Flexeril] 10 mg PO TID PRN #30 tablet 09/06/19 [Rx] Docusate Sodium [Colace] 100 mg PO BID cap 09/06/19 [Rx] Famotidine [Pepcid] 20 mg PO Q12H tablet 09/06/19 [Rx] Magnesium Hydroxide [Milk of Magnesia] 30 ml PO BID PRN cup 09/06/19 [Rx] Rivaroxaban [Xarelto] 10 mg PO DAILY #30 tablet 09/06/19 [Rx] Sennosides [Senna] 8.6 mg PO BID PRN tablet 09/06/19 [Rx] bisacodyL [Dulcolax] 5 mg PO DAILY PRN tablet 09/06/19 [Rx] oxyCODONE 5 - 10 mg PO Q6H PRN #30 tab 10/10/19 [Rx] - CURRENT (IN HOUSE) MEDS Current Meds: Current Medications Lactated Ringer's (Ringers, Lactated) 1,000 mls @ 125 mls/hr IV ASDIRECTED [facility] Stop: 10/10/19 23:00 Lidocaine/Sodium Bicarbonate (Buffered Lidocaine 1% In Ns 8.4%) 0.25 ml IDERM ONETIME PRN PRN Reason: Prior to IV Start Stop: 10/10/19 18:00 Sodium Chloride (Saline Flush) 10 ml FLUSH ASDIRECTED PRN PRN Reason: Keep Vein Open Stop: 10/10/19 18:00
[2019-10-10] MEDS ORDERED: Lidocaine 1% 4 ML ONE (07:39)
[2019-10-10] MEDS ORDERED: Midazolam 1 MG/ML 2 ML SDV ONE (07:39)
[2019-10-10] MEDS ORDERED: Propofol 200 MG/20 ML SDV ONE (07:39)
[2019-10-10] MEDS ORDERED: fentaNYL 100 MCG/2 ML SDV ONE ×2 (07:39→08:05)
--- NOTE | 2019-10-10 08:01 | PCM48HPAN ---
Post Anesthesia Note - EVALUATION WITHIN 48HRS OF ANESTHETIC Vital Signs in Normal Range: Yes Patient Participated in Evaluation: Yes Respiratory Function Stable: Yes Airway Patent: Yes Cardiovascular Function Stable: Yes Hydration Status Stable: Yes Pain Control Satisfactory: Yes Nausea and Vomiting Control Satisfactory: Yes Mental Status Recovered: Yes Vital Signs: Last Vital Signs Temp 36.9 C 10/10/19 06:30 Pulse 85 10/10/19 06:30 Resp 16 10/10/19 06:30 BP 115/85 10/10/19 06:30 Pulse Ox 98 10/10/19 06:30 - COMMENTS/OBSERVATIONS Free Text/Narrative:: no anesthesia complications noted
[2019-10-10] MEDS ORDERED: Ketorolac 30 MG/ML SDV ONE (08:10)
[2019-10-10] MEDS ORDERED: oxyCODONE 5 MG Tab PO PRN (08:42)
[2019-10-10] MEDS ORDERED: Ketorolac 30 MG/ML SDV IVPUSH ONE (09:00)
[2019-10-10] MEDS ORDERED: fentaNYL 100 MCG/2 ML SDV IVPUSH ONE (09:00)
[2019-10-10 09:19] VITALS: BP 118/78; PULSE 63
--- NOTE | 2019-10-14 09:54 | PCM.OPNOTE ---
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
--- NOTE | 2019-10-14 10:15 | OR ---
DATE OF OPERATION: 10/10/2019 SURGEON: Sebastian Jiménez MD OPERATION PERFORMED: Manipulation of left total knee arthroplasty under anesthesia. PREOPERATIVE DIAGNOSIS: Left total knee arthrofibrosis. POSTOPERATIVE DIAGNOSIS: Left total knee arthrofibrosis. ANESTHESIA: MAC sedation. ANESTHESIA PROVIDER: Enrique Julio. [employer] JOINTER: Nilsa Carrasquillo PA-C. ESTIMATED BLOOD LOSS: Not applicable. COMPLICATIONS: None. CONDITION: Stable. DESCRIPTION OF PROCEDURE: The patient was identified in the preoperative holding area. Proper site was marked and identified by surgeon. The patient was taken back to the operative theater, where after time-out, pre manipulation motion was measured. At this time, it was noted to be 2 to around 50 with a fairly hard block. After the manipulation, once we got past the 50, it was fairly easy motion all the way to 140 degrees. It was stable throughout range of motion. There was not otherwise improvement to extension to roughly 1 degrees. Once this was completed, the patient was sent to the PACU in stable condition and will begin physical therapy tomorrow. MMODAL /[id number]
== END 2019-10-10 09:29 | disposition home or self-care (01) ==
LOC: JD.SDS 06:18
PROVIDERS: ATTEND Orthopaedic Surgery
DX: M24.662 Ankylosis, left knee (principal); K21.9 Gastro-esophageal reflux disease without esophagitis; Z79.891 Long term (current) use of opiate analgesic; Z79.01 Long term (current) use of anticoagulants; Z79.899 Other long term (current) drug therapy
CPT/HCPCS: 27570; 81025; A9270; J1885; J2001; J2250; J2704; J3010; J7120; 01380

== ENCOUNTER 2021-07-18 06:03 | Day surgery (SDC) | payer BC ==
--- NOTE | 2021-07-16 12:59 | PCM.SN.2 ---
- Free Text/Narrative Note: Right selective femoral nerve block at the adductor canal for post-procedure pain control under US guidance requested by Dr. Jiménez. Date: 07/18/2021 Time Out: 854 Start: 854 End: 903 Chart reviewed. Consent signed. Questions answered. Appropriate monitors applied. Time out performed. Right mid-shaft femur identified with ultrasound, scanning medially of femur, the femoral artery in the adductor canal visualized, and the femoral nerve located laterally to the artery. The skin was prepped lateral to the ultrasound probe with chlorahexadine times two. The 21ga 4 insulated block needle was inserted under direct ultrasound guidance into the adductor canal. 25mL of 0.5% ropivacaine with 1:200,000 epinephrine was injected circumferentially around the nerve with intermittent negative aspiration noted. Patient tolerated the procedure well. Sterile technique noted along with ster ile gloves, mask, and sterile probe cover. See picture on progress note and vital signs on nurses notes. Block completed in PACU. Thank you, Time Documentation
--- NOTE | 2021-07-16 13:05 | PCM.PREANE ---
Preanesthetic Assessment - Procedure Proposed Procedure: Right Total Knee Arthroplasty - Anesthesia/Transfusion/Family Hx Anesthesia History: Prior Anesthesia Without Reaction Family History of Anesthesia Reaction: No Transfusion History: No Prior Transfusion(s) Intubation History: Unknown - Review of Systems General: No Symptoms (Off phenteramine for over a month. Currently not on any weight loss meds.) Pulmonary: No Symptoms (Former Smoker: quit 2010), Cough Cardiovascular: No Symptoms, Chest Pain Gastrointestinal: No Symptoms (History of gastric sleeve./GERD-stays away from NSAIDS), Constipation (Chronic constipation) Neurological: No Symptoms (ADHD/motion sicknes with carnival rides) Other: Reports: Easy Bruising, Liver Problems (history of elevated liver enzymes:gall bladder issues.), Sinus Problem (post nasal drip) - Physical Assessment NPO Status Date: 07/17/21 NPO Status Time: 18:30 Vital Signs: HR: 86 Sat: 97% Temp: 97.9 B/P: 105/74 Resp: 17 Height: 1.7 m Weight: 90 kg ASA Class: 2 Mental Status: Alert & Oriented x3 Airway Class: Mallampati = 2 Dentition: Reports: Normal Dentition (braces on the top), Caries Thyro-Mental Finger Breadths: 3 Mouth Opening Finger Breadths: 3 ROM/Head Extension: Full Lungs: Clear to Auscultation, Normal Respiratory Effort Cardiovascular: Regular Rate, Regular Rhythm, No Murmurs - Lab Values: All labs reviewed and noted and within acceptable ranges to proceed with scheduled procedure. - Imaging/EKG Impressions: EKG: SR rate=77, borderline T wave abnormalities in anterior leads CXR: negative - Allergies Allergies/Adverse Reactions: Allergies Allergy/AdvReac Type Severity Reaction Status Date / Time No Known Allergies Allergy Verified 07/17/21 10:30 - Anesthesia Plan Pre-Op Medication Ordered: Other (pre-operative meds: lyrica, oxycontin, tylenol all p.o. at: 0639) - Acknowledgements Anesthesia Type Planned: Spinal (Right Adductor Canal Block under US guidance for post operative pain control requested by Dr. 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 (See Below) Other OB/BYN History: infertility Musculoskeletal History: Reports: Arthritis, Other (See Below) Other Musculoskeletal History: hand pain, wrist pain Neurological History: Reports: None Psychiatric History: Reports: ADHD Endocrine/Metabolic History: Reports: None Hematologic History: Reports: None Immunologic History: Reports: None Oncologic (Cancer) History: Reports: None Dermatologic History: Reports: None - Infectious Disease History Infectious Disease History: Reports: Chicken Pox - Past Surgical History Head Surgeries/Procedures: Reports: None HEENT Surgical History: Reports: None Cardiovascular Surgical History: Reports: None Respiratory Surgical History: Reports: None GI Surgical History: Reports: Cholecystectomy, Other (See Below) Other GI Surgeries/Procedures: gastric sleeve surgery Female Surgical History: Reports: None Male Surgical History: Reports: None Endocrine Surgical History: Reports: None Neurological Surgical History: Reports: None Musculoskeletal Surgical History: Reports: Arthroscopic Knee, Other (See Below) Other Musculoskeletal Surgeries/Procedures:: knee surgery x3 Oncologic Surgical History: Reports: None Dermatological Surgical History: Reports: None - HOME MEDS Home Medications: Home Meds Cholecalciferol (Vitamin D3) [Vitamin D3] 5,000 unit PO DAILY 09/05/19 [History] Vits #93/Iron Fum/FA [ Formula Tablet] 1 tab PO DAILY 09/05/19 [History] Cyanocobalamin (Vitamin B-12) [Vitamin B-12] 1,000 mcg PO DAILY 07/17/21 [History] Diclofenac Sodium [Voltaren 1% Gel] 1 dose TP BID PRN 07/17/21 [History] Magnesium 500 mg PO DAILY 07/17/21 [History] Metaxalone [Skelaxin] 800 mg PO TID PRN 07/17/21 [History] Pantoprazole Sodium [Protonix] 20 mg PO DAILY 07/17/21 [History] Rivaroxaban [Xarelto] 10 mg PO DAILY #30 tab 07/17/21 [Rx] oxyCODONE 5 - 15 mg PO Q4H PRN #40 tab 07/17/21 [Rx] - CURRENT (IN HOUSE) MEDS Current Meds: Current Medications Morphine Sulfate 8 mg/Epinephrine HCl 0.3 mg/Cefuroxime Sodium 750 mg/Ketorolac Tromethamine 30 mg/Sodium Chloride 7.9 ml 0 mg .XX ASDIRECTED PRN PRN Reason: Pain Stop: 07/18/21 18:00 Lactated Ringer's (Ringers, Lactated) 1,000 mls @ 125 mls/hr IV ASDIRECTED [facility] Stop: 07/18/21 23:00 Lidocaine/Sodium Bicarbonate (Lidocaine 1%/Sod Bicarbonate In Ns 8.4% 1 Ml Syringe) 0.25 ml IDERM ONETIME PRN PRN Reason: Prior to IV Start Stop: 07/18/21 18:00 Sodium Chloride (Sodium Chloride 0.9% 10 Ml Syringe) 10 ml FLUSH ASDIRECTED PRN PRN Reason: Keep Vein Open Stop: 07/18/21 18:00
[~2021-07-18 06:03] MED LIST changes: +Acetaminophen 325 MG Tab PO SCH; +EPINEPHrine 1 MG/ML SDV ONE; -Lactated Ringers 1,000 ML IV SCH; +Morphine 8 MG, EPINEPHrine 0.3 MG, Cefuroxime 750 MG, Ketorolac 30 MG, Sodium Chloride ... PRN; +Pregabalin 25 MG Cap PO SCH; +Ropivacaine 0.5% 5 MG/ML 30 ML SDV ONE; +oxyCODONE ER 10 MG TAB.ER PO SCH
[2021-07-18] MEDS ORDERED: ceFAZolin 1 GM Vial ONE (06:18)
[2021-07-18] MEDS ORDERED: Lactated Ringers 1,000 ML ONE (06:18)
[2021-07-18] MEDS ORDERED: Ondansetron 4 MG/2 ML SDV ONE (06:18)
[2021-07-18] MEDS ORDERED: Propofol 200 MG/20 ML SDV ONE ×2 (06:19→07:57)
[2021-07-18] MEDS ORDERED: fentaNYL 100 MCG/2 ML SDV ONE (06:19)
[2021-07-18] MEDS ORDERED: Ketamine 500 mg/10 ML MDV ONE (06:19)
[2021-07-18] MEDS ORDERED: Midazolam 1 MG/ML 2 ML SDV ONE (06:19)
[2021-07-18] MEDS ORDERED: Vancomycin 1 GM SDV ONE (06:21)
[2021-07-18] MEDS: Lactated Ringers 1,000 ML IV SCH ×2 (06:30→12:04)
[2021-07-18] MEDS ORDERED: Ondansetron 4 MG/2 ML SDV IVPUSH PRN (07:22)
[2021-07-18] MEDS ORDERED: HYDROmorphone 0.5 MG/0.5 ML Syringe IVPUSH PRN (07:22)
[2021-07-18] MEDS ORDERED: Midazolam 1 MG/ML 2 ML SDV IVPUSH PRN (07:22)
[2021-07-18] MEDS ORDERED: ePHEDrine 50 MG/ML SDV IVPUSH PRN (07:22)
[2021-07-18] MEDS ORDERED: diphenhydrAMINE 50 MG/ML SDV IVPUSH PRN (07:22)
[2021-07-18] MEDS ORDERED: HYDROmorphone 0.5 MG/0.5 ML Syringe ONE (08:07)
--- NOTE | 2021-07-18 08:53 | PCM.POSTAN ---
POST ANESTHESIA ASSESSMENT - MENTAL STATUS Mental Status: Alert - VITAL SIGNS Vital Signs: Last Vital Signs Temp 99.6 07/18/21 0848 Pulse 99 07/18/21 0848 Resp 15 07/18/21 0848 BP 115/56 07/18/21 0848 Pulse Ox 99% 07/18/21 0848 - RESPIRATORY Respiratory Status: Respiratory Rate WNL, Airway Patent, O2 Saturation Stable - CARDIOVASCULAR CV Status: Pulse Rate WNL, Blood Pressure Stable - GASTROINTESTINAL GI Status: No Symptoms - POST OP HYDRATION Hydration Status: Adequate & Stable
[2021-07-18] MEDS: fentaNYL 100 MCG/2 ML SDV IVPUSH PRN ×2 (09:25→09:55)
--- NOTE | 2021-07-18 09:46 | CR ---
Right knee: AP and crosstable lateral views of the right knee were obtained. Comparison: No prior right knee study is available. Knee prosthesis is noted. Patellar prosthesis also seen. Components are aligned. Underlying bony structures show nothing acute. Soft tissue air is noted from the surgical procedure. Impression: 1. Satisfactory postoperative radiographic appearance of recently placed right knee prostheses. Diagnostic code #2
[2021-07-18] MEDS ORDERED: oxyCODONE 5 MG Tab PO ONE (10:21)
[2021-07-18] MEDS ORDERED: oxyCODONE 5 MG Tab PO PRN (11:06)
[2021-07-18 12:02] VITALS: BP 115/69; PULSE 55
[2021-07-18] MEDS ORDERED: Scopolamine 1.5 MG Transdermal Patch TRDERM PRN (12:40)
--- NOTE | 2021-07-19 12:16 | PCM48HPAN ---
Post Anesthesia Note - EVALUATION WITHIN 48HRS OF ANESTHETIC Vital Signs in Normal Range: Yes Patient Participated in Evaluation: Yes Respiratory Function Stable: Yes Airway Patent: Yes Cardiovascular Function Stable: Yes Hydration Status Stable: Yes Pain Control Satisfactory: Yes Nausea and Vomiting Control Satisfactory: Yes Mental Status Recovered: Yes Vital Signs: Last Vital Signs Temp 36.5 C 07/18/21 10:01 Pulse 55 L 07/18/21 12:00 Resp 16 07/18/21 12:00 BP 115/69 07/18/21 12:00 Pulse Ox 95 07/18/21 12:00
--- NOTE | 2021-08-01 07:17 | PCM.OPNOTE ---
- General Post-Op/Procedure Note Date of Surgery/Procedure: 07/18/21 Operative Procedure(s): right total knee arthroplasty with [employer] Pre Op Diagnosis: right knee osteoarthrosis Post-Op Diagnosis: Same Anesthesia Technique: Local, MAC, Spinal Primary Surgeon: Sebastian Jiménez Anesthesia Provider: Kiersten Patrick Regional Facilities Manager: Nilsa Carrasquillo Regional Facilities Manager: Kati Reinoso EBL in mLs: 40 Complications: None Condition: Good Free Text/Narrative:: 11/21 9mm 32x10
--- NOTE | 2021-08-01 08:08 | OR ---
DATE OF OPERATION: 07/18/2021 SURGEON: Sebastian Jiménez MD OPERATION PERFORMED: Right total knee arthroplasty with [employer]. PREOPERATIVE DIAGNOSIS: Right knee osteoarthrosis. POSTOPERATIVE DIAGNOSIS: Right knee osteoarthrosis. ANESTHESIA: Local MAC with spinal. ANESTHESIA PROVIDER: Kiersten Patrick CRNA ASSISTANTS: Nilsa Carrasquillo PA-C and Kati Reinoso LPN ESTIMATED BLOOD LOSS: 40 mL. COMPLICATIONS: None. CONDITION: Stable. IMPLANTS: 1. [place] size 3 press-fit CR femur. 2. Joe size 3 press-fit tibial baseplate. 3. [place] size 3, 9 mm CS polyethylene insert. 4. Joe size 32 x 10 mm press-fit asymmetric patella. DESCRIPTION OF PROCEDURE: The patient was identified in the preop holding area. Proper site was marked and identified by the surgeon. The patient was taken back to the operating theater, where after adequate anesthesia, the patient's right lower extremity had a nonsterile tourniquet applied and then it was sterilely prepped and draped in the usual sterile fashion. OR time-out was performed. The patient received 2 g IV Ancef. Leg rosales was then applied to the right lower extremity. At this time, the right lower extremity was exsanguinated. Tourniquet was insufflated to 250 mmHg. Standard anterior incision was made. Medial parapatellar arthrotomy was created. Deep fibers of the MCL were raised and anterior fat pad was resected. Attention was turned to the patella. Patella measured a 22 and was resected to a 13 for a 32 x 10 mm patella. Drill holes were then drilled. Attention was then turned to the femur. Two 4.0 Schanz pins were placed intra-incisionally on the femur for the [place] [employer] robotic array and then 2 more were placed on the tibia 3 fingerbreadths below the tibial tubercle. The [place] [employer] robotic arrays were placed on both the femur and the tibia at this time as well as checkpoints on the femur and tibia. Hip center rotation was then obtained. The medial and lateral malleoli were marked as well as the checkpoints were marked for the [employer] robotic plan. The patient's knee was brought to full extension, varus and valgus stresses were applied, and then into 90 degrees of flexion. [place] [employer] robotic plan for this patient was then undertaken to match the flexion and extension gaps. A straight saw blade was then brought in. Tibial cut was completed as well as an anterior femoral cut, anterior chamfer cut, and posterior femoral cut. Saw blade was then switched out and the distal femoral cut as well as the posterior chamfer cut was completed. All bony fragments were removed. At this time, medial and lateral menisci were resected as well as any posterior osteophytes. Attention was turned to the tibia. The size 3 trial baseplate was placed on the tibia and a size 3 trial femur was placed on the femur. A size 3, 9 mm trial poly was placed. The patient's knee was brought to full extension and flexion. Varus and valgus stresses were applied, was found to be stable with no instability. No signs of liftoff or loosening on the tibial baseplate. At this time, femoral drill holes were drilled, and the tibia was stamped and drilled in proper rotation. All trial implants were then removed. The size 3 tibial baseplate was impacted into place, size 3 press-fit CR femoral component was impacted into place, and then a size 3, 9 mm CS polyethylene insert was impacted into place. A 32 x 10 mm press-fit patella was then press-fit into place. The tourniquet was deflated. Bleeders were cauterized. 1 L pulse lavage irrigation with Ancef was irrigated through the knee along with 400 mL Irrisept irrigation. Periarticular injection was completed. Topical tranexamic acid and vancomycin powder were applied. All checkpoints and pins were removed. At this point, a #2 barbed suture was used for closure of the medial parapatellar arthrotomy in flexion. 2-0 Vicryl and Stratafix were used for subcutaneous closure. Prineo was used for cutaneous closure. 3-0 nylons were used for closure of the pin holes on the tibia. The patient had a sterile soft dressing applied. The patient had an CARMELA wrap applied and was sent to PACU in stable condition. The patient tolerated the procedure well. [facility] /[id number]
== END 2021-07-18 12:57 | disposition home or self-care (01) ==
LOC: JD.SDS 06:03
PROVIDERS: ATTEND Orthopaedic Surgery
DX: M17.11 Unilateral primary osteoarthritis, right knee (principal); F17.210 Nicotine dependence, cigarettes, uncomplicated; E66.9 Obesity, unspecified; R05.9 Cough, unspecified; Z79.899 Other long term (current) drug therapy; Z98.890 Other specified postprocedural states; Z68.32 Body mass index [BMI] 32.0-32.9, adult
CPT/HCPCS: 27447; 73560; 81025; 97116; 97161; A9270; C1713; C1776; J0171; J0690; J0697; J1170; J1885; J2250; J2270; J2370; J2405; J2704; J2795; J3010; J3370; J7120; 01402; 64447; 76942

== ENCOUNTER → 2021-10-21 | Day surgery (SDC) | payer BC ==
[~2021-10-21] MED LIST changes: -Acetaminophen 325 MG Tab PO SCH; +Dexamethasone 4 MG/ML 5 ML MDV ONE; +Dexmedetomidine 200 MCG/2 ML SDV ONE; -EPINEPHrine 1 MG/ML SDV ONE; +HYDROmorphone 0.5 MG/0.5 ML Syringe IVPUSH PRN; +Ketamine 500 mg/10 ML MDV ONE; +Lactated Ringers 1,000 ML IV SCH; +Midazolam 1 MG/ML 2 ML SDV ONE; -Morphine 8 MG, EPINEPHrine 0.3 MG, Cefuroxime 750 MG, Ketorolac 30 MG, Sodium Chloride ... PRN; +Ondansetron 4 MG/2 ML SDV IVPUSH PRN; +Ondansetron 4 MG/2 ML SDV ONE; -Pregabalin 25 MG Cap PO SCH; +Propofol 200 MG/20 ML SDV ONE; -Ropivacaine 0.5% 5 MG/ML 30 ML SDV ONE; -Sodium Chloride 0.9% 10 ML Syringe FLUSH PRN; +Sodium Chloride 0.9% 10 ML Syringe FLUSH SCH; +fentaNYL 100 MCG/2 ML SDV IVPUSH PRN; +fentaNYL 100 MCG/2 ML SDV ONE; -oxyCODONE ER 10 MG TAB.ER PO SCH
[2021-10-21 08:14] VITALS: BP 115/71; PULSE 66
== END | disposition home or self-care (01) ==
LOC: JD.SDS 06:06
PROVIDERS: ATTEND Orthopaedic Surgery
DX: T84.82XA Fibrosis due to internal orthopedic prosthetic devices, implants and grafts, initial encounter (principal); I10 Essential (primary) hypertension; E78.5 Hyperlipidemia, unspecified; K21.9 Gastro-esophageal reflux disease without esophagitis; Z90.49 Acquired absence of other specified parts of digestive tract; Z98.890 Other specified postprocedural states; Z96.651 Presence of right artificial knee joint; Z87.891 Personal history of nicotine dependence
CPT/HCPCS: 27599; 81025; J1100; J1170; J2250; J2405; J2704; J3010; J7120; 01380; J3490

== ENCOUNTER 2022-11-20 11:40 | Day surgery (SDC) | payer BC, OTHER ==
[~2022-11-20 11:40] MED LIST changes: -Dexamethasone 4 MG/ML 5 ML MDV ONE; -Dexmedetomidine 200 MCG/2 ML SDV ONE; +EPINEPHrine 1 MG/ML 30 ML MDV IRR SCH; -HYDROmorphone 0.5 MG/0.5 ML Syringe IVPUSH PRN; -Ketamine 500 mg/10 ML MDV ONE; -Midazolam 1 MG/ML 2 ML SDV ONE; -Ondansetron 4 MG/2 ML SDV IVPUSH PRN; -Ondansetron 4 MG/2 ML SDV ONE; -Propofol 200 MG/20 ML SDV ONE; +Sodium Chloride 0.9% 10 ML Syringe FLUSH PRN; -fentaNYL 100 MCG/2 ML SDV IVPUSH PRN; -fentaNYL 100 MCG/2 ML SDV ONE
[2022-11-20] MEDS ORDERED: Bupivacaine 0.25% 10 ML SDV ONE (12:28)
[2022-11-20] MEDS ORDERED: Ondansetron 4 MG/2 ML SDV ONE ×2 (13:11→14:30)
[2022-11-20] MEDS ORDERED: fentaNYL 100 MCG/2 ML SDV ONE (13:11)
[2022-11-20] MEDS ORDERED: ceFAZolin 2 GM Vial ONE (13:11)
[2022-11-20] MEDS ORDERED: Lidocaine 1% 2 ML ONE (13:11)
[2022-11-20] MEDS ORDERED: Propofol 200 MG/20 ML SDV ONE (13:11)
[2022-11-20] MEDS ORDERED: Midazolam 1 MG/ML 2 ML SDV ONE (13:12)
[2022-11-20] MEDS ORDERED: Ondansetron 4 MG/2 ML SDV IVPUSH PRN (13:25)
[2022-11-20] MEDS ORDERED: HYDROmorphone 0.5 MG/0.5 ML Syringe IVPUSH PRN (13:25)
[2022-11-20] MEDS ORDERED: Ketorolac 30 MG/ML SDV ONE ×2 (14:30)
[2022-11-20] MEDS ORDERED: HYDROmorphone 1 MG/ML Syringe ONE (15:05)
[2022-11-20] MEDS ORDERED: Ropivacaine 0.5% 5 MG/ML 30 ML SDV ONE (15:06)
[2022-11-20] MEDS: fentaNYL 100 MCG/2 ML SDV IVPUSH PRN ×2 (15:11→15:26)
[2022-11-20] MEDS ORDERED: Acetaminophen/HYDROcodone 325-5 MG Tab PO PRN (15:38)
[2022-11-20 16:12] VITALS: BP 112/77; PULSE 78
== END 2022-11-20 16:30 | disposition home or self-care (01) ==
LOC: JD.SDS 11:40
PROVIDERS: ATTEND Orthopaedic Surgery
DX: T84.84XA Pain due to internal orthopedic prosthetic devices, implants and grafts, initial encounter (principal); T84.82XA Fibrosis due to internal orthopedic prosthetic devices, implants and grafts, initial encounter; K21.9 Gastro-esophageal reflux disease without esophagitis; F90.9 Attention-deficit hyperactivity disorder, unspecified type; Z79.899 Other long term (current) drug therapy
CPT/HCPCS: 01400; 64450; 81025; A9270-GY; J0171; J0690; J1170; J1885; J2250; J2405; J2704; J2795; J3010; J3490; J7120

== ENCOUNTER 2023-01-06 07:05 | Day surgery (SDC) | payer BC ==
[~2023-01-06 07:05] MED LIST changes: -EPINEPHrine 1 MG/ML 30 ML MDV IRR SCH
[2023-01-06] MEDS ORDERED: Propofol 200 MG/20 ML SDV ONE ×2 (07:28→07:30)
[2023-01-06] MEDS ORDERED: Lidocaine 1% 6 ML ONE (07:29)
[2023-01-06 08:37] VITALS: BP 144/70; PULSE 75
== END 2023-01-06 08:45 | disposition home or self-care (01) ==
LOC: JD.SDS 07:05
PROVIDERS: ATTEND Surgery
DX: K29.50 Unspecified chronic gastritis without bleeding (principal); E66.9 Obesity, unspecified; K21.9 Gastro-esophageal reflux disease without esophagitis; Z98.84 Bariatric surgery status; Z90.49 Acquired absence of other specified parts of digestive tract; Z79.899 Other long term (current) drug therapy; Z68.33 Body mass index [BMI] 33.0-33.9, adult
CPT/HCPCS: 43239; 81025; J2704; J7120; 00813; J3490

== ENCOUNTER 2024-08-23 06:15 | Day surgery (SDC) | payer BC ==
[~2024-08-23 06:15] MED LIST changes: -Lactated Ringers 1,000 ML IV SCH; -Lidocaine 1%/Sod Bicarbonate in NS 8.4% 1 ML Syringe IDERM PRN
[2024-08-23] MEDS ORDERED: Ondansetron 4 MG/2 ML SDV ONE (06:50)
[2024-08-23] MEDS ORDERED: Ketorolac 30 MG/ML SDV ONE (06:50)
[2024-08-23] MEDS ORDERED: Lactated Ringers 1,000 ML ONE (06:50)
[2024-08-23] MEDS ORDERED: Propofol 200 MG/20 ML SDV ONE (06:50)
[2024-08-23] MEDS: Lactated Ringers 1,000 ML IV SCH (06:50)
[2024-08-23] MEDS ORDERED: ceFAZolin 2 GM Vial ONE (06:50)
[2024-08-23] MEDS ORDERED: Midazolam 1 MG/ML 2 ML SDV ONE (06:50)
[2024-08-23] MEDS ORDERED: Dexamethasone 4 MG/ML 5 ML MDV ONE (06:50)
[2024-08-23] MEDS ORDERED: Rocuronium 50 MG/5 ML Vial ONE (06:50)
[2024-08-23] MEDS ORDERED: dexmedeTOMIDine HCl 200 MCG/2 ML SDV ONE (06:50)
[2024-08-23] MEDS ORDERED: fentaNYL 250 MCG/5 ML SDV ONE (06:50)
[2024-08-23] MEDS ORDERED: Lidocaine 1% 4 ML ONE (06:51)
[2024-08-23] MEDS ORDERED: EPINEPHrine 1 MG/ML SDV ONE (06:59)
[2024-08-23] MEDS ORDERED: HYDROmorphone 0.5 MG/0.5 ML Syringe IVPUSH PRN (07:12)
[2024-08-23] MEDS ORDERED: Ondansetron 4 MG/2 ML SDV IVPUSH PRN (07:12)
[2024-08-23 07:53] LABS: APPEARANCE,URINE SLT CLOUDY (Clear); BILIRUBIN,URINE NEGATIVE (Negative); COLOR,URINE YELLOW (Yellow); GLUCOSE,URINE NEGATIVE (Negative); KETONES,URINE NEGATIVE (Negative); LEUKOCYTE ESTERASE,URINE NEGATIVE (Negative); NITRITE,URINE NEGATIVE (Negative); OCCULT BLOOD,URINE NEGATIVE (Negative); PROTEIN,URINE NEGATIVE (Negative); UROBILINOGEN,URINE 0.2 (0.2-1.0)
[2024-08-23] MEDS ORDERED: ePHEDrine 50 MG/ML SDV ONE (07:59)
[2024-08-23] MEDS ORDERED: HYDROmorphone 0.5 MG/0.5 ML Syringe ONE (08:13)
[2024-08-23] MEDS: Bupivacaine 0.5% 30 ML SDV ONE (08:15)
[2024-08-23] MEDS: Bupivacaine 0.25% 10 ML SDV ONE (08:42)
[2024-08-23] MEDS ORDERED: Sugammadex Sodium 200 MG/2 ML VIAL IV ONE (08:57)
[2024-08-23] MEDS: fentaNYL 100 MCG/2 ML SDV IVPUSH PRN (09:55)
[2024-08-23] MEDS: oxyCODONE 5 MG Tab PO ONE (10:37)
[2024-08-23 11:47] VITALS: BP 123/76; PULSE 73
== END 2024-08-23 11:43 | disposition home or self-care (01) ==
LOC: JD.SDS 06:15
PROVIDERS: ATTEND Obstetrics & Gynecology
DX: D25.1 Intramural leiomyoma of uterus (principal); D25.2 Subserosal leiomyoma of uterus; N80.03 Adenomyosis of the uterus; N83.8 Other noninflammatory disorders of ovary, fallopian tube and broad ligament; K21.9 Gastro-esophageal reflux disease without esophagitis; E66.9 Obesity, unspecified; Z68.37 Body mass index [BMI] 37.0-37.9, adult
CPT/HCPCS: 36415; 58552; 81003; 81025; 86850; 86900; 86901; A9270; J0171; J0665; J0690; J1100; J1171; J1885; J2250; J2405; J2704; J3010; J3490; J7120; 00944

== ENCOUNTER 2024-11-10 08:08 | Day surgery (SDC) | payer BC ==
[2024-11-10] MEDS: Lactated Ringers 1,000 ML IV SCH (08:35)
[2024-11-10] MEDS ORDERED: Propofol 200 MG/20 ML SDV ONE (08:40)
[2024-11-10] MEDS ORDERED: Ketamine 200 MG/20 ML MDV ONE (08:41)
[2024-11-10] MEDS ORDERED: Lidocaine 2% 5 ML SDV ONE (08:41)
[2024-11-10] MEDS ORDERED: Ondansetron 4 MG/2 ML SDV ONE (08:50)
[2024-11-10 11:30] VITALS: BP 116/79; PULSE 78
== END 2024-11-10 10:35 | disposition home or self-care (01) ==
LOC: JD.SDS 08:08
PROVIDERS: ATTEND Surgery
DX: K64.4 Residual hemorrhoidal skin tags (principal); K44.9 Diaphragmatic hernia without obstruction or gangrene; K21.9 Gastro-esophageal reflux disease without esophagitis; K62.89 Other specified diseases of anus and rectum; E66.9 Obesity, unspecified; Z68.37 Body mass index [BMI] 37.0-37.9, adult; Z98.84 Bariatric surgery status; Z79.899 Other long term (current) drug therapy
CPT/HCPCS: 43239; 45378; C9777; J2003; J2405; J2704; J3490; J7120

== ENCOUNTER 2025-01-24 10:28 | Inpatient (IN) | payer BC ==
[~2025-01-24 10:28] MED LIST changes: -Sodium Chloride 0.9% 10 ML Syringe FLUSH SCH
[2025-01-24] MEDS: Lactated Ringers 1,000 ML IV SCH (10:45)
[2025-01-24] MEDS ORDERED: Glycopyrrolate 0.2 MG/ML 2 ML SDV ONE (10:49)
[2025-01-24] MEDS ORDERED: Ropivacaine 0.5% 5 MG/ML 30 ML SDV ONE (10:49)
[2025-01-24] MEDS ORDERED: Rocuronium 50 MG/5 ML Vial ONE ×2 (10:49→11:46)
[2025-01-24] MEDS ORDERED: Propofol 200 MG/20 ML SDV ONE (10:49)
[2025-01-24] MEDS ORDERED: fentaNYL 100 MCG/2 ML SDV ONE (10:49)
[2025-01-24] MEDS ORDERED: Dexamethasone 4 MG/ML 5 ML MDV ONE (10:49)
[2025-01-24] MEDS ORDERED: Lidocaine 2% 5 ML SDV ONE (10:49)
[2025-01-24] MEDS ORDERED: Midazolam 1 MG/ML 2 ML SDV ONE (10:50)
[2025-01-24] MEDS ORDERED: metroNIDAZOLE/Normal Saline 100 ML ONE (11:08)
[2025-01-24] MEDS ORDERED: Heparin Sodium 5,000 Units/ML Vial ONE (11:08)
[2025-01-24] MEDS: metroNIDAZOLE/Normal Saline 500 MG in Premix Bag 1 BAG IV ONE (11:30)
[2025-01-24] MEDS ORDERED: Sugammadex Sodium 200 MG/2 ML VIAL IV ONE (11:46)
[2025-01-24] MEDS ORDERED: ceFAZolin 2 GM Vial ONE (11:46)
[2025-01-24] MEDS: Bupivacaine 0.5% 30 ML SDV ONE (11:47)
[2025-01-24] MEDS: EPINEPHrine 1 MG/ML SDV ONE (11:47)
[2025-01-24] MEDS ORDERED: Esmolol 100 MG/10 ML SDV ONE (11:52)
[2025-01-24] MEDS: Heparin Sodium 5,000 Units/ML Vial SUBCUT ONE (12:21)
[2025-01-24] MEDS ORDERED: Ondansetron 4 MG/2 ML SDV ONE (13:21)
[2025-01-24] MEDS: Bupivacaine 0.25% 10 ML SDV ONE (13:58)
[2025-01-24] MEDS ORDERED: Lactated Ringers 1,000 ML ONE (14:21)
[2025-01-24] MEDS ORDERED: Sodium Chloride 0.9% 1,000 ML ONE (14:21)
[2025-01-24] MEDS ORDERED: Promethazine 25 MG Tab PO PRN (14:30)
[2025-01-24] MEDS ORDERED: Acetaminophen/oxyCODONE 325-5 MG Tab PO PRN (14:39)
[2025-01-24] MEDS ORDERED: Simethicone 80 MG Tab.Chew PO PRN (14:42)
[2025-01-24] MEDS ORDERED: Benzocaine/Cetylpyridinium/Menthol Lozenge MUCMEM PRN (14:42)
[2025-01-24] MEDS: Ondansetron 4 MG/2 ML SDV IV PRN (14:48)
[2025-01-24] MEDS: Scopalamine 1mg/3day Transdermal Patch TRDERM PRN (15:00)
[2025-01-24] MEDS: droPERidol 2.5 MG/ML SDV IVPUSH ONE (15:10)
[2025-01-24] MEDS: Acetaminophen 325 MG Tab PO SCH (17:05)
[2025-01-24] MEDS: diphenhydrAMINE 50 MG/ML SDV ONE (17:05)
[2025-01-24] MEDS: Sodium Chloride 0.9% 10 ML Syringe FLUSH SCH (17:05)
[2025-01-24] MEDS: HYDROmorphone 0.5 MG/0.5 ML Syringe IVPUSH PRN (18:13)
[2025-01-24] MEDS: oxyCODONE 5 MG Tab PO PRN (20:13)
[2025-01-25] MEDS: diphenhydrAMINE 50 MG/ML SDV IVPUSH PRN ×2 (00:20→08:56)
[2025-01-25 04:30] LABS: BASOPHILS PERCENT AUTO 0.1 % (0.0-1.0); HEMATOCRIT 34.8 % (37.0-47.0); HEMOGLOBIN 11.6 gm/dl (12.0-16.0); IMMATURE GRAN ABSOLUTE AUTO 0.04 K/mm3 (0.00-0.05); IMMATURE GRAN PERCENT AUTO 0.4 % (0.0-0.4); LYMPHOCYTES ABSOLUTE AUTO 1.4 K/mm3 (1.0-4.8); LYMPHOCYTES PERCENT AUTO 12.8 % (24.0-44.0); MEAN CORPUSCULAR HEMOGLOBIN 28.9 pg (28.0-32.0); MEAN CORPUSCULAR HGB CONC 33.3 g/dl (32.0-36.0); MEAN CORPUSCULAR VOLUME 86.6 fl (83.0-99.0); MEAN PLATELET VOLUME 10.5 fl (9.4-12.3); MONOCYTES ABSOLUTE AUTO 0.8 K/mm3 (0.0-0.8); MONOCYTES PERCENT AUTO 7.6 % (0.0-8.0); NEUTROPHILS ABSOLUTE AUTO 8.4 K/mm3 (1.8-7.7); NEUTROPHILS PERCENT AUTO 79.1 % (41.0-71.0); PLATELET COUNT,PLT 329 K/mm3 (150-400); RED BLOOD CELL COUNT 4.02 M/mm3 (4.10-5.30); WHITE BLOOD CELL COUNT,WBC 10.59 K/mm3 (3.9-11.3)
[2025-01-25 04:47] LABS: ANION GAP 14.7 (5-15); BUN/CREATININE RATIO 7.8 (14-18); CALCIUM 8.5 mg/dL (8.5-10.1); CREATININE 0.9 mg/dL (0.55-1.02); EST CRCL DRUG DOSING (CG) 80.12 mL/min; POTASSIUM,K 4.7 mEq/L (3.5-5.1)
[2025-01-25] MEDS: Enoxaparin 40 MG/0.4 ML Syringe SUBCUT SCH (08:28)
[2025-01-25] MEDS: Lactated Ringers 1,000 ML IV SCH (12:49)
[2025-01-26 04:21] LABS: BASOPHILS ABSOLUTE AUTO 0.1 K/mm3 (0.0-0.2); BASOPHILS PERCENT AUTO 0.8 % (0.0-1.0); EOSINOPHILS ABSOLUTE AUTO 0.1 K/mm3 (0.0-0.4); EOSINOPHILS PERCENT AUTO 1.1 % (0.0-6.0); HEMATOCRIT 32.2 % (37.0-47.0); HEMOGLOBIN 10.6 gm/dl (12.0-16.0); IMMATURE GRAN ABSOLUTE AUTO 0.03 K/mm3 (0.00-0.05); IMMATURE GRAN PERCENT AUTO 0.4 % (0.0-0.4); LYMPHOCYTES ABSOLUTE AUTO 2.8 K/mm3 (1.0-4.8); MEAN CORPUSCULAR HEMOGLOBIN 28.3 pg (28.0-32.0); MEAN CORPUSCULAR HGB CONC 32.9 g/dl (32.0-36.0); MEAN CORPUSCULAR VOLUME 85.9 fl (83.0-99.0); MEAN PLATELET VOLUME 10.6 fl (9.4-12.3); MONOCYTES ABSOLUTE AUTO 0.5 K/mm3 (0.0-0.8); MONOCYTES PERCENT AUTO 6.6 % (0.0-8.0); NEUTROPHILS ABSOLUTE AUTO 4.5 K/mm3 (1.8-7.7); NEUTROPHILS PERCENT AUTO 56.1 % (41.0-71.0); PLATELET COUNT,PLT 268 K/mm3 (150-400); RED BLOOD CELL COUNT 3.75 M/mm3 (4.10-5.30); WHITE BLOOD CELL COUNT,WBC 7.99 K/mm3 (3.9-11.3)
[2025-01-26 04:36] LABS: ANION GAP 10.6 (5-15); BUN/CREATININE RATIO 7.5 (14-18); CALCIUM 8.3 mg/dL (8.5-10.1); CREATININE 0.8 mg/dL (0.55-1.02); EST CRCL DRUG DOSING (CG) 90.13 mL/min; POTASSIUM,K 3.6 mEq/L (3.5-5.1)
[2025-01-26] MEDS ORDERED: HYDROmorphone 1 MG/ML Syringe IVPUSH PRN (10:46)
[2025-01-26 12:13] VITALS: BP 118/61; PULSE 59
== END 2025-01-26 16:27 | disposition home or self-care (01) | DRG 220 ==
LOC: JD.MS 10:28
PROVIDERS: ADMIT Surgery; ATTEND Surgery
PROC: 0D164ZA Bypass Stomach to Jejunum, Percutaneous Endoscopic Approach (ICD-10-PCS; principal; 2025-01-24 11:15)
DX: K21.9 Gastro-esophageal reflux disease without esophagitis (principal); M19.90 Unspecified osteoarthritis, unspecified site; E66.01 Morbid (severe) obesity due to excess calories; Z68.39 Body mass index [BMI] 39.0-39.9, adult; K44.9 Diaphragmatic hernia without obstruction or gangrene; Z98.84 Bariatric surgery status; Z98.890 Other specified postprocedural states; Z79.899 Other long term (current) drug therapy
CPT/HCPCS: 36415; 80048; 85025; 94760; 94761; A9270-GY; J0171; J0665; J0690; J1100; J1200; J1596; J1644; J1650; J1790; J1805; J1836; J2003; J2250; J2405; J2704; J2795; J3010; J3490; J7030; J7120

== ENCOUNTER 2025-02-23 08:08 | Emergency (ER) | payer BC ==
[2025-02-23 10:39] VITALS: BP 128/73; PULSE 76
== END 2025-02-23 10:13 | disposition home or self-care (01) ==
LOC: JD.ED 08:08
DX: K64.9 Unspecified hemorrhoids (principal); K56.41 Fecal impaction; Z79.899 Other long term (current) drug therapy
CPT/HCPCS: 99283